=== PATIENT | male | born 1960 ===

== ENCOUNTER 2017-06-04 07:47 | Observation (INO) | payer MEDICAID, OTHER ==
--- NOTE | 2017-06-04 08:30 | C.PDOC ---
History Of Present Illness 56 y/o male presents to ED stating "my equilibrium is off." Pt complaints of dizziness for 3 weeks after falling in 04/2017 on snow. Patient states dizziness is worse when moving head. Describes the dizziness as unsteady gait and "disorientated" , denies room spinning. Patient reports similar episode last year after falling on snow, which lasted 6 weeks and self resolved. At ED patient blood pressure is elevated 208/108, denies history of HTN. Patient denies chest pain, sob,sob, palpitations, headache nausea, vomiting, leg swelling or visual changes. Time Seen by Provider: 06/04/17 08:14 Chief Complaint (Nursing): Dizziness/Lightheaded History Per: Patient History/Exam Limitations: no limitations Onset/Duration Of Symptoms: Intermittent Episodes Current Symptoms Are (Timing): Still Present Associated Symptoms Preceding Syncopal Episode: Vertigo Worse With Change In Head Position Past Medical History Reviewed: Historical Data, Nursing Documentation, Vital Signs Vital Signs: Last Vital Signs Temp 98.6 F 06/04/17 15:45 Pulse 89 06/04/17 16:57 Resp 18 06/04/17 15:45 BP 158/94 H 06/04/17 15:45 Pulse Ox 97 06/04/17 15:45 - Medical History PMH: No Chronic Diseases Surgical History: No Surg Hx Family History: States: No Known Family Hx - Social History Hx Tobacco Use: No Hx Alcohol Use: Yes Hx Substance Use: No - Immunization History Hx Tetanus Toxoid Vaccination: No Hx Influenza Vaccination: No Review Of Systems Constitutional: Negative for: Fever, Chills Eyes: Positive for: Vision Change Cardiovascular: Negative for: Chest Pain Respiratory: Negative for: Shortness of Breath Gastrointestinal: Negative for: Nausea, Vomiting Neurological: Positive for: Dizziness. Negative for: Numbness, Headache Physical Exam - Physical Exam Appears: Non-toxic, No Acute Distress Skin: Warm, Dry, No Rash Head: Atraumatic, Normacephalic Eye(s): bilateral: Normal Inspection (No nystagmus), PERRL, EOMI Ear(s): Bilateral: Normal Nose: Normal Oral Mucosa: Moist Neck: Normal ROM, Supple Chest: Symmetrical Cardiovascular: Rhythm Regular Respiratory: Normal Breath Sounds, No Rales, No Rhonchi, No Wheezing Gastrointestinal/Abdominal: Soft, No Tenderness, No Guarding, No Rebound Extremity: Normal ROM, Capillary Refill (<2 seconds) Neurological/Psych: Oriented x3, Normal Speech, Normal Cognition, Normal Motor, Normal Sensation, Other (no focal deficits) Gait: Steady ED Course And Treatment - Laboratory Results Result Diagrams: 06/04/17 08:50 06/04/17 08:50 ECG: Interpreted By Me, Viewed By Me ECG Rhythm: Sinus Rhythm Rate From EC (BPM) O2 Sat by Pulse Oximetry: 98 (RA) Pulse Ox Interpretation: Normal Progress Note: CT Head w/o contras, Blood work, ECG ordered. IV fluids and Antivert administered. Case discsused with Dr. Nunez agreed upon plan and admission. Case discussed with Dr Iniguez, agreed upon plan and treatment. NIHSS Stroke Scale 2 - Date/Time Evaluation Performed Date Performed: 06/04/17 Time Performed: 09:00 When Was NIHSS Performed: Baseline - How Severe is the Stroke Level of Consciousness: 0=Alert LOC to Questions: 0=Both comments correct LOC to commands: 0=Obeys both correctly Best Gaze: 0=Normal Visual: 0=No visual loss Facial: 0=Normal Motor Arm - Left: 0=No drift Motor Arm - Right: 0=No drift Motor Leg - Right: 0=No drift Limb Ataxia: 0=Absent Sensory: 0=Normal Best Language: 0=No aphasia Dysarthia: 0=Normal articulation Extinction & Inattention (Neglect): 0=Normal, no object Disposition - Disposition Disposition: HOSPITALIZED Disposition Time: 13:34 Condition: STABLE - Clinical Impression Clinical Impression: Dizziness, Hypertensive emergency - 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 - Scribe Statement The provider has reviewed the documentation as recorded by the Aundreaibalma Roberto All medical record entries made by the Shahid were at my direction and personally dictated by me. I have reviewed the chart and agree that the record accurately reflects my personal performance of the history, physical exam, medical decision making, and the department course for this patient. I have also personally directed, reviewed, and agree with the discharge instructions and disposition.
[2017-06-04 08:53] LABS: EOS # 0.1 K/uL (0.0-0.7); MONO # 0.4 K/uL (0.0-0.8); WHITE BLOOD COUNT 5.5 K/uL (4.8-10.8)
[2017-06-04 08:58] LABS: BASO % 0.8 % (0.0-2.0); EOS % 1.6 % (0.0-4.0); LYMPH # 1.9 K/uL (1.0-4.3); LYMPH % 33.8 % (20.0-40.0); MEAN CELL VOLUME 86.8 fL (80.0-94.0); MEAN CORPUSCULAR HEMOGLOBIN 31.3 pg (27.0-31.0); MEAN CORPUSCULAR HGB CONC 36.1 g/dL (33.0-37.0); MONO % 8.1 % (0.0-10.0); NEUT # 3.1 K/uL (1.8-7.0); NEUT % 55.7 % (50.0-75.0); NRBC % 0.3 % (0.0-2.0); RBC 5.74 Mil/uL (4.40-5.90); RED CELL DISTRIBUTION WIDTH 12.4 % (11.5-14.5)
[2017-06-04 09:34] LABS: ALBUMIN 4.2 g/dL (3.5-5.0); ALT/SGPT 27 U/L (21-72); AST/SGOT 39 U/L (17-59); BLOOD UREA NITROGEN 8 mg/dL (9-20); CALCIUM 8.6 mg/dl (8.6-10.4); GFR AFRICAN-AMERICAN > 60; GFR NON-AFRICAN AMERICAN > 60
[2017-06-04 09:45] LABS: CK-MB 0.42 ng/mL (0.0-3.38)
--- NOTE | 2017-06-04 09:47 | CT ---
PROCEDURE: CT HEAD WITHOUT CONTRAST. HISTORY: Dizziness. Evaluate for hemorrhage. COMPARISON: None available. TECHNIQUE: Axial computed tomography images were obtained through the head/brain without intravenous contrast. Radiation dose: Total exam DLP = 910 mGy-cm. This CT exam was performed using one or more of the following dose reduction techniques: Automated exposure control, adjustment of the mA and/or kV according to patient size, and/or use of iterative reconstruction technique. FINDINGS: HEMORRHAGE: No intracranial hemorrhage. Probable streak artifact in the inferior left cerebellum on series 4, image 9. BRAIN: Scattered focal lucencies in the subcortical and periventricular white matter suggestive for chronic microvascular ischemic change. Focal lucency seen within the right thalamus measuring 8 millimeters suggestive for a lacunar infarct. Additional punctate hypoechoic foci measuring 2-3 millimeter seen within the right caudate head on series 4 image 22 suggestive for an additional small lacunar infarct. VENTRICLES: Unremarkable. No hydrocephalus. CALVARIUM: Unremarkable. PARANASAL SINUSES: Unremarkable as visualized. No significant inflammatory changes. MASTOID AIR CELLS: Unremarkable as visualized. No inflammatory changes. OTHER FINDINGS: None. IMPRESSION: Chronic microvascular ischemic change. Probable small lacunar infarcts in the right caudate head and thalamus. If there is concern for acute ischemic change, correlation with MRI would be helpful.
--- NOTE | 2017-06-04 12:05 | CP.PCM.HP ---
History of Present Illness - History of Present Illness History of Present Illness: CC: I can't take equilibrium problem" HPI: This is a 56 year old male with no past medical history presenting to the ED for "equilibrium problem". Patient stated this began 3 weeks ago after he had a fall on patchy ice. He denies any dizziness, chest pain, SOB, palpitation prior to the fall or any head injury or LOC post-fall. Patient reports that he loses his balance in the morning when he ambulates to the bathroom for the past 3 weeks and he needs to lean on the side of the wall as he is walking in the morning. He states he came in to the ED today because he could not tolerate his symptoms anymore. Patient stated he had a fall 1 year ago on a patch of ice. He had similar symptoms of disequilibrium post-fall that lasted for 6 weeks. He denies any fevers, chills, chest pain, SOB, palpitations, dizziness, headache, nausea, vomiting and visual disturbance. 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 Denies current or former use of tobacco, admits to 4-5 beers on the weekend, history of one- time cocaine use last year Present on Admission - Present on Admission Any Indicators Present on Admission: No Review of Systems - Constitutional Constitutional: absent: Chills, Fatigue, Fever, Headache, Weakness - EENT Eyes: absent: Blurred Vision Ears: Disequilibrium, Dizziness. absent: Decreased Hearing, Ear Discharge, Tinnitus, Abnormal Hearing Nose/Mouth/Throat: absent: Epistaxis, Nasal Congestion - Cardiovascular Cardiovascular: absent: Chest Pain, Diaphoresis, Dyspnea, Dyspnea on Exertion, Irregular Heart Rhythm, Leg Edema, Lightheadedness, Orthopnea, Palpitations, Paroxysmal Nocturnal Dyspnea, Syncope - Respiratory Respiratory: absent: Dyspnea, Wheezing, Snoring - Gastrointestinal Gastrointestinal: absent: Abdominal Pain, Constipation, Diarrhea, Hematemesis, Hematochezia, Nausea, Vomiting - Musculoskeletal Musculoskeletal: absent: Joint Swelling, Muscle Cramps, Muscle Weakness, Myalgias, Numbness - Neurological Neurological: Disequilibrium, Dizziness, Lack of Coordination. absent: Numbness , Focal Weakness, Headaches, Loss of Vision - Psychiatric Psychiatric: absent: Anxiety - Endocrine Endocrine: absent: Fatigue, Palpitations Past Patient History - Infectious Disease Hx of Infectious Diseases: None - Past Social History Smoking Status: Never Smoked - PSYCHIATRIC Hx Substance Use: No - SURGICAL HISTORY Hx Surgeries: No - ANESTHESIA Hx Anesthesia: No Meds Allergies/Adverse Reactions: Allergies Allergy/AdvReac Type Severity Reaction Status Date / Time No Known Allergies Allergy Unverified 06/28/15 20:52 Physical Exam - Constitutional Appears: No Acute Distress - Head Exam Head Exam: ATRAUMATIC, NORMAL INSPECTION - Eye Exam Eye Exam: EOMI, Normal appearance, PERRL Pupil Exam: NORMAL ACCOMODATION, PERRL - ENT Exam ENT Exam: Mucous Membranes Moist, Normal Oropharynx, TM's Normal Bilaterally - Neck Exam Neck exam: Positive for: Normal Inspection - Respiratory Exam Respiratory Exam: Clear to Auscultation Bilateral, NORMAL BREATHING PATTERN. absent: Prolonged Expiratory Phase, Rhonchi, Wheezes, Respiratory Distress - Cardiovascular Exam Cardiovascular Exam: REGULAR RHYTHM, +S1, +S2. absent: Tachycardia, Diastolic murmur, Irregular Rhythm, Systolic Murmur - GI/Abdominal Exam GI & Abdominal Exam: Normal Bowel Sounds, Soft. absent: Distended, Firm, Guarding, Tenderness - Extremities Exam Extremities exam: Positive for: normal inspection. Negative for: calf tenderness, pedal edema - Back Exam Back exam: NORMAL INSPECTION. absent: CVA tenderness (L), CVA tenderness (R) - Neurological Exam Neurological exam: Alert, CN II-XII Intact, Normal Gait, Oriented x3, Reflexes Normal - Psychiatric Exam Psychiatric exam: Normal Affect - Skin Skin Exam: Normal Color Results - Vital Signs Recent Vital Signs: Last Vital Signs Temp 98.3 F 06/04/17 11:13 Pulse 73 06/04/17 11:13 Resp 18 06/04/17 11:13 BP 163/94 H 06/04/17 11:13 Pulse Ox 98 06/04/17 11:58 - Labs Result Diagrams: 06/04/17 08:50 06/04/17 08:50 Labs: Laboratory Results - last 24 hr 06/04/17 06/04/17 08:50 08:50 WBC 5.5 RBC 5.74 Hgb 18.0 Hct 50.6 MCV 86.8 MCH 31.3 H MCHC 36.1 RDW 12.4 Plt Count 214 MPV 9.0 Neut % (Auto) 55.7 Lymph % (Auto) 33.8 [place] % (Auto) 8.1 Eos % (Auto) 1.6 Baso % (Auto) 0.8 Neut # (Auto) 3.1 Lymph # (Auto) 1.9 [place] # (Auto) 0.4 Eos # (Auto) 0.1 Baso # (Auto) 0.0 Sodium 139 Potassium 3.6 Chloride 94 L Carbon Dioxide 30 Anion Gap 19 BUN 8 L Creatinine 0.6 L Est GFR ( Amer) > 60 Est GFR (Non-Af Amer) > 60 Random Glucose 271 H Calcium 8.6 Total Bilirubin 1.4 H AST 39 ALT 27 Alkaline Phosphatase 151 H Total Creatine Kinase 83 CK-MB (Mass) 0.42 Troponin I < 0.0120 Total Protein 8.3 Albumin 4.2 Globulin 4.1 H Albumin/Globulin Ratio 1.0 Assessment & Plan (1) Hypertensive urgency Assessment and Plan: BP on admission: * 208/108 Norvasc 5mg PO daily Admit to observation telemetry Neuro checkS q6h prn Head CT without contrast: Chronic microvascular ischemic change. Probable small lacunar infarcts in the right caudate head and thalamus. If there is concern for acute ischemic change, correlation with MRI would be helpful. MRI without contrast: No acute intracranial abnormality.Old lacunar infarctions in the right anterior limb of internal capsule and thalamus.Mild chronic microangiopathic changes and moderate global parenchymal volume loss, advanced for the patient's age. Medication: * ASA 81mg PO daily Status: Acute (2) Dizziness Assessment and Plan: Possibly secondary to elevated BP Head CT without contrast: Chronic microvascular ischemic change. Probable small lacunar infarcts in the right caudate head and thalamus. If there is concern for acute ischemic change, correlation with MRI would be helpful. MRI without contrast: No acute intracranial abnormality.Old lacunar infarctions in the right anterior limb of internal capsule and thalamus.Mild chronic microangiopathic changes and moderate global parenchymal volume loss, advanced for the patient's age. F/u orthostatic vital sign Medications: * Meclizine 25mg PO daily Status: Acute (3) Prophylactic measure Assessment and Plan: DVT: Heparin 5,000 units SC q8h, SCD Heart healthy diet All plans and management discussed with Dr. Maldonado Status: Acute
--- NOTE | 2017-06-04 15:43 | MRI ---
PROCEDURE: MRI BRAIN WITHOUT CONTRAST HISTORY: rule out cerebellar stroke COMPARISON: Noncontrast head CT from 06/04/2017. TECHNIQUE: Multiplanar, multisequence MR images of the brain were obtained without intravenous contrast enhancement. FINDINGS: HEMORRHAGE: None DWI: No evidence of an acute or early subacute infarction. BRAIN PARENCHYMA: There are old lacunar infarctions in the right thalamus and anterior limb of internal capsule. There are mild chronic microangiopathic changes. There is no mass, mass effect or abnormal extra-axial fluid collection VENTRICLES: There is moderate age advanced global parenchymal volume loss and proportionate enlargement of the ventricles and cortical sulci. CRANIUM: There is normal bone marrow signal pattern. ORBITS: Grossly unremarkable. PARANASAL SINUSES/MASTOIDS: Predominantly clear. VASCULAR SYSTEM: There are normal signal voids in the larger intracranial arteries. OTHER FINDINGS: None. IMPRESSION: No acute intracranial abnormality. Old lacunar infarctions in the right anterior limb of internal capsule and thalamus. Mild chronic microangiopathic changes and moderate global parenchymal volume loss, advanced for the patient's age.
[2017-06-04 18:25] LABS: BARBITURATES, UR NEGATIVE (NEGATIVE); BENZODIAZEPINES, UR NEGATIVE (NEGATIVE); OPIATES, UR NEGATIVE (NEGATIVE); PHENCYCLIDINE, UR NEGATIVE (NEGATIVE)
[2017-06-05 06:46] LABS: ALB/GLOB RATIO 0.9 (1.0-2.1); ALBUMIN 3.4 g/dL (3.5-5.0); ALT/SGPT 27 U/L (21-72); AST/SGOT 33 U/L (17-59); BLOOD UREA NITROGEN 11 mg/dL (9-20); CALCIUM 8.3 mg/dl (8.6-10.4); GFR AFRICAN-AMERICAN > 60; GFR NON-AFRICAN AMERICAN > 60; HDL CHOLESTEROL 30 mg/dL (30-70)
[2017-06-05 06:52] LABS: BASO % 0.8 % (0.0-2.0); EOS # 0.2 K/uL (0.0-0.7); EOS % 2.7 % (0.0-4.0); LDL CHOLESTEROL 99 mg/dL (0-129); LYMPH # 2.3 K/uL (1.0-4.3); LYMPH % 38.5 % (20.0-40.0); MEAN CORPUSCULAR HEMOGLOBIN 31.4 pg (27.0-31.0); MEAN CORPUSCULAR HGB CONC 36.1 g/dL (33.0-37.0); MEAN PLATELET VOLUME 9.5 fL (7.2-11.7); MONO # 0.5 K/uL (0.0-0.8); MONO % 8.6 % (0.0-10.0); NEUT # 2.9 K/uL (1.8-7.0); NEUT % 49.4 % (50.0-75.0); NRBC % 0.5 % (0.0-2.0); RBC 5.39 Mil/uL (4.40-5.90); RED CELL DISTRIBUTION WIDTH 12.6 % (11.5-14.5); WHITE BLOOD COUNT 5.9 K/uL (4.8-10.8)
[2017-06-05] MEDS ORDERED: Potassium Chloride 20 mEq ER Tab PO SCH (09:30)
[2017-06-05] MEDS ORDERED: Potassium Chloride 20 mEq ER Tab PO ONE ×2 (09:31→13:00)
[2017-06-05 11:41] VITALS: O2SAT 99
[2017-06-05] MEDS ORDERED: Pneumococcal 23-Valent Vaccine SC ONE (12:04)
[2017-06-05 12:39] VITALS: BP 125/86; PULSE 86; RESP 18; TEMP 98.3
--- NOTE | 2017-06-05 14:56 | CP.PCM.DIS ---
Provider - Provider Date of Admission: 06/04/17 11:10 Attending physician: Karl Nunez MD Time Spent in preparation of Discharge (in minutes): 40 Diagnosis - Discharge Diagnosis (1) Hypertensive urgency Status: Resolved (2) Dizziness Status: Resolved (3) Diabetes mellitus Status: Chronic Hospital Course - Lab Results Lab Results: Most Recent Lab Values WBC 5.9 K/uL (4.8-10.8) 06/05/17 06:22 RBC 5.39 Mil/uL (4.40-5.90) 06/05/17 06:22 Hgb 17.0 g/dL (12.0-18.0) 06/05/17 06:22 Hct 46.9 % (35.0-51.0) 06/05/17 06:22 MCV 87.0 fL (80.0-94.0) 06/05/17 06:22 MCH 31.4 pg (27.0-31.0) H 06/05/17 06:22 MCHC 36.1 g/dL (33.0-37.0) 06/05/17 06:22 RDW 12.6 % (11.5-14.5) 06/05/17 06:22 Plt Count 192 K/uL (130-400) 06/05/17 06:22 MPV 9.5 fL (7.2-11.7) 06/05/17 06:22 Neut % (Auto) 49.4 % (50.0-75.0) L 06/05/17 06:22 Lymph % (Auto) 38.5 % (20.0-40.0) 06/05/17 06:22 [place] % (Auto) 8.6 % (0.0-10.0) 06/05/17 06:22 Eos % (Auto) 2.7 % (0.0-4.0) 06/05/17 06:22 Baso % (Auto) 0.8 % (0.0-2.0) 06/05/17 06:22 Neut # (Auto) 2.9 K/uL (1.8-7.0) 06/05/17 06:22 Lymph # (Auto) 2.3 K/uL (1.0-4.3) 06/05/17 06:22 [place] # (Auto) 0.5 K/uL (0.0-0.8) 06/05/17 06:22 Eos # (Auto) 0.2 K/uL (0.0-0.7) 06/05/17 06:22 Baso # (Auto) 0.0 K/uL (0.0-0.2) 06/05/17 06:22 APTT 27 SECONDS (21-34) 06/04/17 18:04 Sodium 135 mmol/L (132-148) 06/05/17 06:22 Potassium 3.0 mmol/L (3.6-5.2) L 06/05/17 06:22 Chloride 98 mmol/L (98-107) 06/05/17 06:22 Carbon Dioxide 27 mmol/L (22-30) 06/05/17 06:22 Anion Gap 13 (10-20) 06/05/17 06:22 BUN 11 mg/dL (9-20) 06/05/17 06:22 Creatinine 0.5 mg/dL (0.8-1.5) L 06/05/17 06:22 Est GFR ( Amer) > 60 06/05/17 06:22 Est GFR (Non-Af Amer) > 60 06/05/17 06:22 Random Glucose 205 mg/dL (75-110) H 06/05/17 06:22 Hemoglobin A1c 9.2 % (4.2-6.5) H 06/05/17 04:00 Calcium 8.3 mg/dl (8.6-10.4) L 06/05/17 06:22 Phosphorus 2.8 mg/dL (2.5-4.5) 06/05/17 06:22 Magnesium 2.0 mg/dL (1.6-2.3) 06/05/17 06:22 Total Bilirubin 1.2 mg/dL (0.2-1.3) 06/05/17 06:22 AST 33 U/L (17-59) 06/05/17 06:22 ALT 27 U/L (21-72) 06/05/17 06:22 Alkaline Phosphatase 130 U/L (38-126) H 06/05/17 06:22 Total Creatine Kinase 83 U/L (55-170) 06/04/17 08:50 CK-MB (Mass) 0.42 ng/mL (0.0-3.38) 06/04/17 08:50 Troponin I < 0.0120 ng/mL (0.00-0.120) 06/04/17 08:50 Total Protein 7.1 g/dL (6.3-8.3) 06/05/17 06:22 Albumin 3.4 g/dL (3.5-5.0) L 06/05/17 06:22 Globulin 3.7 gm/dL (2.2-3.9) 06/05/17 06:22 Albumin/Globulin Ratio 0.9 (1.0-2.1) L 06/05/17 06:22 Triglycerides 459 mg/dL (0-149) H 06/05/17 06:22 Cholesterol 181 mg/dL (0-199) 06/05/17 06:22 LDL Cholesterol Direct 99 mg/dL (0-129) 06/05/17 06:22 HDL Cholesterol 30 mg/dL (30-70) 06/05/17 06:22 Urine Opiates Screen Negative (NEGATIVE) 06/04/17 18:04 Urine Methadone Screen Negative (NEGATIVE) 06/04/17 18:04 Ur Barbiturates Screen Negative (NEGATIVE) 06/04/17 18:04 Ur Phencyclidine Scrn Negative (NEGATIVE) 06/04/17 18:04 Ur Amphetamines Screen Negative (NEGATIVE) 06/04/17 18:04 U Benzodiazepines Scrn Negative (NEGATIVE) 06/04/17 18:04 U Oth Cocaine Metabols Positive (NEGATIVE) H 06/04/17 18:04 U Cannabinoids Screen Negative (NEGATIVE) 06/04/17 18:04 - Hospital Course Hospital Course: "HPI: This is a 56 year old male with no past medical history presenting to the ED for "equilibrium problem". Patient stated this began 3 weeks ago after he had a fall on patchy ice. He denies any dizziness, chest pain, SOB, palpitation prior to the fall or any head injury or LOC post-fall. Patient reports that he loses his balance in the morning when he ambulates to the bathroom for the past 3 weeks and he needs to lean on the side of the wall as he is walking in the morning. He states he came in to the ED today because he could not tolerate his symptoms anymore. Patient stated he had a fall 1 year ago on a patch of ice. He had similar symptoms of disequilibrium post-fall that lasted for 6 weeks. He denies any fevers, chills, chest pain, SOB, palpitations, dizziness, headache, nausea, vomiting and visual disturbance." 56 year old man with no significant past medical history presented to ED with "equilibrium problem." Patient was found to have a blood pressure of 208/108 and was diagnosed with hypertensive urgency. Patient was treated with norvasc 5mg po. Head CT and MRI was ordered and patient was admitted to telemetry. Head CT showed chronic microvascular ischemic changes with probably small lacunar infarcts in right caudate head and thalamus. MRI showed old lacunar infarcts of right anterior limb of internal capsule and thalamus and mild chronic microangiopathic changes with moderate global parenchymal volume loss which was advanced for patient's age. Patient was also found to have Hgb A1c of 9.2 and a triglyceride level of 459. Patient was seen by diabetic dietitian. Upon discharge, patient's dizziness had drastically improved. His blood pressure had returned steadily to 125/86. He was advised to follow up with neurology outpatient for further consultation on the old lacunar infarcts found on MRI. He was also advised to follow up in the Clinic at [facility] for hypertension, diabetes, and hypertriglyceridemia management. Patient to return to Emergency Room if symptoms return. This is a summary of the patient's hospital course, please see chart for full details. Discharge Exam - Head Exam Head Exam: ATRAUMATIC, NORMAL INSPECTION - Eye Exam Eye Exam: EOMI, Normal appearance - ENT Exam ENT Exam: Mucous Membranes Moist - Respiratory Exam Respiratory Exam: NORMAL BREATHING PATTERN, UNREMARKABLE. absent: Rales, Rhonchi, Wheezes, Respiratory Distress - Cardiovascular Exam Cardiovascular Exam: REGULAR RHYTHM, RRR, +S1, +S2 - GI/Abdominal Exam GI & Abdominal Exam: Normal Bowel Sounds, Soft. absent: Tenderness - Extremities Exam Extremities exam: normal inspection - Neurological Exam Neurological exam: Alert, Oriented x3 - Psychiatric Exam Psychiatric exam: Normal Affect, Normal Mood - Skin Skin Exam: Intact, Normal Color, Warm Discharge Plan - Discharge Medications Prescriptions: amLODIPine [Norvasc] 2.5 mg PO DAILY #14 tab Aspirin [Ecotrin] 81 mg PO DAILY #14 tabec Lisinopril 2.5 mg PO DAILY #30 tablet metFORMIN [glucOPHAGE] 500 mg PO BID #60 tab - Follow Up Plan Condition: STABLE Disposition: HOME/ ROUTINE Instructions: Hypertension (DC), Hypertension (GEN) Additional Instructions: Patient stable for discharge as per Dr. Maldonado. Patient to follow up in [facility] within 2 weeks. Patient to take Amlodipine 2.5mg daily, Aspirin 81mg daily, Lisinopril 2.5mg daily, Metformin 500mg po twice a day. Patient to return to ED if symptoms return. Referrals: [facility] [Provider Group] Henry Flor MD [Staff Provider] -
--- NOTE | 2017-06-05 17:17 | CARD ---
APPROVED REPORT EKG Measurement Heart [id number] <Conclusion> Normal sinus rhythm Normal ECG
[2017-06-06] MEDS ORDERED: Pneumococcal 23-Valent Vaccine IM ONE (10:00)
== END 2017-06-05 15:53 | disposition home or self-care (01) ==
LOC: C.ER 07:47 → C.9I 11:10 → C.9E 11:10
PROVIDERS: ADMIT Internal Medicine; ATTEND Internal Medicine
DX: I16.1 Hypertensive emergency (principal); Z88.6 Allergy status to analgesic agent; Z86.73 Personal history of transient ischemic attack (TIA), and cerebral infarction without residual deficits; E11.9 Type 2 diabetes mellitus without complications; Z23 Encounter for immunization; I10 Essential (primary) hypertension
CPT/HCPCS: 70450; 70551; 80053; 80061; 80324; 80345; 80346; 80349; 80353; 80358; 80361; 82550; 82553; 82948; 83036; 83735; 83992; 84100; 84484; 85025; 85730; 87081; 90471; 90732; 93005; 97110; 97161; 97165; 97530; 99285; G0378; G8978; G8979; G8980; G8987; G8988; G8989; J1644